=== PATIENT | male | born 1940 | race Caucasian/White ===

== ENCOUNTER 2017-08-23 23:24 | Emergency (ER) | payer MEDICARE, OTHER ==
[~2017-08-23] VITALS: Ht 185.4 cm; Wt 75.0 kg
[2017-08-24 01:56] LABS: CLARITY URINE CLOUDY (CLEAR); COLOR URINE YELLOW (YELLOW); KETONES URINE NEGATIVE (NEGATIVE); LEUKOCYTE ESTERASE URINE 3+ (NEGATIVE); NITRITE URINE POSITIVE (NEGATIVE); OCCULT BLOOD URINE TRACE (NEGATIVE); PROTEIN URINE 1+ (NEGATIVE); SPECIFIC GRAVITY URINE 1.015 (1.005-1.030); UROBILINOGEN URINE 0.2 E.U./dL (0.2-1.0)
[2017-08-24] MEDS ORDERED: LEVOFLOXACIN 250MG TABLET PO ONE (03:30)
[2017-08-24 03:50] VITALS: BP 144/86
== END 2017-08-24 03:58 | disposition home or self-care (01) ==
LOC: ER 23:34
DX: N39.0 Urinary tract infection, site not specified (principal); L22 Diaper dermatitis; T83.018A Breakdown (mechanical) of other urinary catheter, initial encounter; Y84.8 Other medical procedures as the cause of abnormal reaction of the patient, or of later complication, without mention of misadventure at the time of the procedure; Y92.9 Unspecified place or not applicable
CPT/HCPCS: 81003; 87077; 87086; 87186; 99284